=== PATIENT | male | born 1980 | race American Indian/Alaskan Native ===

== ENCOUNTER 2019-04-13 18:06 | Emergency (ER) | payer OTHER ==
[2019-04-13 18:37] VITALS: BP 141/89
--- NOTE | 2019-04-13 18:49 | Emergency Department Report ---
Chief Complaint: Earache Stated Complaint: GROWTH OUTSIDE OF EAR Time Seen by Provider: 04/13/19 18:44 - HPI History of Present Illness: This is a 38-year-old male nontoxic, well in appearance with no signs of distress presents to the ED for left earlobe keloid. Patient stated has been there for months. Patient stated he is asymptotic. Patient denies any fever, chills, headache, nausea, vomiting, chest pain or shortness of breathe. denies any other symptoms or complaints. Denies any allergies or PMH. - Exam Vital Signs: Vital Signs 04/13/19 04/13/19 18:11 18:39 Pulse Rate 75 Respiratory 18 Rate Blood Pressure 141/89 O2 Sat by Pulse 96 Oximetry Physical Exam: earlobe keloid of left side. no other symptoms. no pain. no induration or flutance noted. nontender. MSE screening note: Focused history and physical exam performed. Due to findings the following was ordered: ED Medical Decision Making - Medical Decision Making This is a 38-year-old male that presents with nonmedical emergency complaint. Patient denies any symptoms. Patient was instructed to Follow-up with a primary care doctor in 3-5 days or if symptoms worsen and continue return to emergency room as soon as possible. At time of discharge, the patient does not seem toxic or ill in appearance. No acute signs of distress noted. Patient agrees to discharge treatment plan of care. No further questions noted by the patient. ED Disposition for MSE Clinical Impression: Keloid of skin Disposition: Z-07 MED SCREENING EXAM-LEFT Is pt being admited?: No Does the pt Need Aspirin: No Condition: Stable Additional Instructions: Follow-up with a primary care doctor in 3-5 days or if symptoms worsen and continue return to the emergency department as soon as possible. Referrals: PRIMARY MD ESPERANZA [Referring] - 3-5 Days JORJE STARKS MD [Staff Physician] - 3-5 Days [facility] [Outside] - 3-5 Days
== END 2019-04-13 20:04 | disposition left against medical advice (07) ==
LOC: ED 18:06
DX: L91.0 Hypertrophic scar (principal)

== ENCOUNTER 2019-07-09 11:16 | Outpatient (CLI) | payer OTHER ==
[2019-07-09 12:37] LABS: HCG,Quantitative < 2 mIU/mL (0-1)
== END 2019-07-09 11:17 | disposition home or self-care (01) ==
LOC: LAB 11:16
PROVIDERS: ATTEND Surgery
DX: N62 Hypertrophy of breast (principal)
CPT/HCPCS: 36415; 82670; 84146; 84436; 84443; 84479; 84702

== ENCOUNTER 2019-07-09 12:40 | Outpatient (CLI) | payer OTHER ==
--- NOTE | 2019-07-09 14:59 | Ultrasound Report ---
BILATERAL DIGITAL DIAGNOSTIC MAMMOGRAM WITH CAD 07/09/2019 LEFT COMPLETE BREAST ULTRASOUND INDICATION: 38-year-old with long-term left breast enlargement. LEFT GYNECOMASTIA TECHNIQUE: Digital bilateral mammographic imaging was performed. Complete ultrasound of all four (4) quadrants was performed. This examination was interpreted with the benefit of Computer-Aided Detecti on (CAD) analysis. COMPARISON: None FINDINGS: Breast Density: The breasts are almost entirely fatty. MAMMOGRAPHIC FINDINGS: Relatively diffuse left fibroglandular densities consistent with benign gyneco mastia. No mass, suspicious calcifications or architectural distortion of either breast. ULTRASOUND FINDINGS: Complete sonographic evaluation of all 4 quadrants and retroareolar region was p erformed. Diffuse fibroglandular structures consistent with benign gynecomastia. No suspicious find ing. IMPRESSION: Benign left gynecomastia and no suspicious finding of either breast. Follow up recommendation: Clinical exam BI-RADS Category 2: Benign. A "normal" or negative report should not discourage follow up or biopsy of a clinically significant f inding. A written summary of these findings will be mailed to the patient. The patient will be entered into a mammography reporting system which will generate a reminder letter for the patient's next appointmen t at the appropriate interval. According to the [employer], yearly mammograms are recommended starting at age 40 and continuing as long as a woman is in good health. Breast MRI is recommended for women with an cherrie roximately 20-25% or greater lifetime risk of breast cancer, including women with a strong family his tory of breast or ovarian cancer and women who have been treated for Hodgkin's disease. Signer Name: Ilir Franks MD Signed: 07/09/2019 2:55 PM Workstation Name: [id number]
== END 2019-07-09 12:41 | disposition home or self-care (01) ==
LOC: SPVWC 12:40
PROVIDERS: ATTEND Surgery
DX: N62 Hypertrophy of breast (principal)
CPT/HCPCS: 77066

== ENCOUNTER 2021-11-03 09:48 | Outpatient (CLI) | payer OTHER ==
[2021-11-03 12:06] LABS: Basophils % (Auto) 0.8 % (0.0-1.8); Eosinophils # (Auto) 0.2 K/mm3 (0.0-0.4); Eosinophils % (Auto) 5.8 % (0.0-4.3); Hematocrit 42.3 % (35.5-45.6); Lymphocytes # (Auto) 1.4 K/mm3 (1.2-5.4); Lymphocytes % (Auto) 37.8 % (13.4-35.0); Mean Corpuscular HGB Conc 33 % (32-34); Mean Corpuscular Volume 85 fl (84-94); Monocytes # (Auto) 0.3 K/mm3 (0.0-0.8); Monocytes % (Auto) 8.7 % (0.0-7.3); Platelet Count 154 K/mm3 (140-440); Red Blood Count 4.97 M/mm3 (3.65-5.03); Red Cell Distribution Width 12.5 % (13.2-15.2)
[2021-11-03 12:15] LABS: Alanine Aminotransferase 22 units/L (7-56); Albumin 5.1 g/dL (3.9-5); BUN/Creatinine Ratio 18; Blood Urea Nitrogen 22 mg/dL (9-20); Calcium 10.1 mg/dL (8.4-10.2); Chol/HDL Ratio 3.32 %; HDL Cholesterol 52 mg/dL (40-59); Hemolysis Index 11; LDL Cholesterol,Direct 112 mg/dL (50-130)
[2021-11-06 15:23] LABS: Vitamin D, 25-OH, D2 <4 ng/mL
== END 2021-11-03 09:49 | disposition home or self-care (01) ==
LOC: LABHHL 09:48
PROVIDERS: ATTEND Internal Medicine
DX: R53.83 Other fatigue (principal); E55.9 Vitamin D deficiency, unspecified; E66.3 Overweight
CPT/HCPCS: 36415; 80053; 80061; 82306; 84443; 85025; 86689; 87591